=== PATIENT | male | born 1965 | race Caucasian/White ===

== ENCOUNTER 2016-05-27 11:47 | Emergency (ER) | payer OTHER, MEDICAID ==
[~2016-05-27] VITALS: Ht 167.6 cm; Wt 74.8 kg
[2016-05-27 11:57] VITALS: BP_SYST 115
[2016-05-27] MEDS ORDERED: KETOROLAC TROMETHAMINE 30 MG VIAL IVP ONE (13:00)
[2016-05-27 13:38] LABS: BASOPHILS # (AUTO) 0.1 K/uL (0.0-0.2); BASOPHILS % (AUTO) 0.8 % (0.0-2.0); EOSINOPHILS % (AUTO) 0.1 % (0.0-4.0); HEMATOCRIT 45.1 % (36-54); HEMOGLOBIN 15.7 g/dL (14.0-18.0); LYMPHOCYTES # (AUTO) 1.9 K/uL (1.0-5.5); LYMPHOCYTES % (AUTO) 14.6 % (20.5-51.5); MEAN CORPUSCULAR HEMOGLOBIN 31 pg (27-31); MEAN CORPUSCULAR HGB CONC 35 % (32-36); MEAN CORPUSCULAR VOLUME 90 fL (79.0-98.0); MONOCYTES # (AUTO) 1.3 K/uL (0.0-1.0); MONOCYTES % (AUTO) 9.9 % (1.7-9.3); NEUTROPHILS # (AUTO) 9.8 K/uL (1.8-7.7); NEUTROPHILS % (AUTO) 74.6 % (40.0-70.0); PLATELET COUNT (AUTO) 324 K/uL (130-430); RED BLOOD CELL COUNT(AUTO) 5.02 MIL/uL (4.2-6.2); RED CELL DISTRIBUTION WIDTH 11.7 % (9.0-15.0); WHITE BLOOD COUNT (AUTO) 13.1 K/uL (4.8-10.8)
[2016-05-27 13:49] LABS: CALCIUM 9.3 mg/dL (8.4-11.0); CREATININE 0.7 mg/dL (0.55-1.30); POTASSIUM 3.9 mmol/L (3.5-5.1)
[2016-05-27 13:54] LABS: ALBUMIN 3.5 g/dL (3.4-4.8); PROTHROMBIN TIME 10.8 SECS (9.5-12.5); TOTAL BILIRUBIN 1.2 mg/dL (0.0-1.0); TOTAL PROTEIN, SERUM 8.3 g/dL (6.4-8.3)
[2016-05-27] MEDS ORDERED: IOHEXOL 100 ML IV ONE (14:23)
[2016-05-27 16:36] VITALS: BP_SYST 123
== END 2016-05-27 16:37 | disposition home or self-care (01) ==
LOC: SED 11:47
DX: K04.7 Periapical abscess without sinus (principal); I10 Essential (primary) hypertension; R10.84 Generalized abdominal pain; E11.9 Type 2 diabetes mellitus without complications
CPT/HCPCS: 36415; 70487; 80053; 83605; 85025; 85610; 85730; 87040; 96374; 99285; J1885; Q9967

== ENCOUNTER 2018-12-12 14:26 | Emergency (ER) | payer OTHER, MEDICAID ==
[~2018-12-12] VITALS: Ht 167.6 cm; Wt 83.9 kg
[2018-12-12 14:26] VITALS: BP_SYST 139
[2018-12-12] MEDS ORDERED: LIDOCAINE 1% 10 MG/ML, 20 ML MDV INJ ONE (15:00)
[2018-12-12] MEDS ORDERED: IBUPROFEN 600 MG TABLET PO ONE (15:00)
[2018-12-12 15:50] VITALS: BP_SYST 129
== END 2018-12-12 15:53 | disposition home or self-care (01) ==
LOC: SED 14:26
DX: S61.411A Laceration without foreign body of right hand, initial encounter (principal); E11.9 Type 2 diabetes mellitus without complications; I10 Essential (primary) hypertension; W26.0XXA Contact with knife, initial encounter; X58.XXXA Exposure to other specified factors, initial encounter; Y93.89 Activity, other specified; Y92.89 Other specified places as the place of occurrence of the external cause; Y99.8 Other external cause status
CPT/HCPCS: 12002; 99283; J2001